=== PATIENT | male | born 1960 | race Caucasian/White ===

== ENCOUNTER 2020-01-20 08:58 | Inpatient (IN) | payer MEDICAID ==
[2020-01-20] VITALS (18 sets, daily range): BP systolic 118–157; BP diastolic 62–101
[~2020-01-20] VITALS: Ht 185.4 cm; Wt 115.9 kg
--- NOTE | 2020-01-20 09:18 | NUR ---
INFORMED PRIMARY NURSE CHRISTY AND DR ADAMS THAT PT HAS ARRIVED AND IS IN BED 03
[2020-01-20 09:39] LABS: BASOPHILS # (AUTO) 0.1 X10'3 (0-0.2); BASOPHILS % (AUTO) 0.7 % (0-1); EOSINOPHILS # (AUTO) 0.4 X10'3 (0-0.9); EOSINOPHILS % (AUTO) 4.8 % (0-6); HEMATOCRIT 50.1 % (42.0-52.0); HEMOGLOBIN 16.7 g/dl (14.0-17.9); LYMPHOCYTES # (AUTO) 2.2 X10'3 (1.1-4.8); LYMPHOCYTES % (AUTO) 24.4 % (21-51); MEAN CORPUSCULAR HEMOGLOBIN 28.9 PG (27.0-31.0); MEAN CORPUSCULAR HGB CONC 33.3 g/dL (33.0-36.5); MEAN CORPUSCULAR VOLUME 86.7 FL (78-98); MEAN PLATELET VOLUME 8.1 FL (7.4-10.4); MONOCYTES # (AUTO) 0.5 X10'3 (0-0.9); MONOCYTES % (AUTO) 5.9 % (2-12); NEUTROPHILS # (AUTO) 5.8 X10'3 (1.8-7.7); NEUTROPHILS % (AUTO) 64.2 % (42-75); PLATELET COUNT 183 X10'3 (140-440); RED BLOOD COUNT 5.78 X10'6 (4.70-6.10); RED CELL DISTRIBUTION WIDTH 15.3 % (11.5-14.5); WHITE BLOOD COUNT 9.1 X10'3 (4.5-11.0)
[2020-01-20 10:03] LABS: ALANINE AMINOTRANSFERASE 26 U/L (12-78); ALBUMIN 3.7 G/DL (3.4-5.0); ALKALINE PHOSPHATASE 106 IU/L (46-116); ANION GAP 6 (8-16); ASPARTATE AMINO TRANSFERASE 16 U/L (10-37); BILIRUBIN,TOTAL 0.4 MG/DL (0.1-1.0); BLOOD UREA NITROGEN 20 MG/DL (7-18); BUN/CREATININE RATIO 19.2 (5.4-32.0); CALCIUM 9.5 MG/DL (8.5-10.1); CHLORIDE 107 MMOL/L (99-107); CREATININE 1.04 MG/DL (0.60-1.10); GLUCOSE 106 MG/DL (70-104); LIPASE 91 U/L (73-393); POTASSIUM 4.5 MMOL/L (3.5-5.1); SODIUM 145 MMOL/L (135-145); TOTAL CARBON DIOXIDE 31.8 MMOL/L (24-32); TOTAL PROTEIN 7.4 G/DL (6.4-8.2); eGFR 74 ML/MIN
[2020-01-20] MEDS ORDERED: LEVO75TA PO (10:50)
[2020-01-20] MEDS ORDERED: OXYC5CAP19 PO (10:50)
[2020-01-20] MEDS ORDERED: ASPI-611 PO (10:50)
[2020-01-20] MEDS ORDERED: MORP30CA16 PO (10:50)
[2020-01-20 10:56] LABS: CLARITY,URINE CLOUDY (Clear); COLOR,URINE YELLOW (Yellow); GLUCOSE, URINE NEGATIVE (Neg); KETONES,URINE NEGATIVE (Neg); LEUKOCYTE ESTERASE ,URINE NEGATIVE (Neg); NITRITES, URINE NEGATIVE (Neg); OCCULT BLOOD,URINE NEGATIVE (Neg); PH,URINE 5.5 (4.8-8.0); PROTEIN,URINE NEGATIVE (Neg); UROBILINOGEN,URINE 0.2 E.U/dL (0.2-1.0)
[2020-01-20 10:57] LABS: UA COLLECTION TYPE URINAL
[2020-01-20 11:07] LABS: MUCUS STRANDS MODERATE /LPF (Neg); SQUAMOUS EPITHELIAL CELL,UR MODERATE /LPF (FEW)
[2020-01-20 11:08] LABS: BACTERIA,URINE 1+ /HPF (Neg); RBC,URINE 0-2 /HPF (0-2)
[2020-01-20] MEDS ORDERED: orphenadrine citrate 60mg/2ml inj. IM ONE (13:15)
[2020-01-20] MEDS ORDERED: diphenhydrAMINE 25mg capsule PO PRN (13:45)
[2020-01-20] MEDS ORDERED: metoclopramide 5 mg/ml inj IV PRN (13:45)
[2020-01-20] MEDS ORDERED: mag hydrox/Alum hydrox/simeth 30ml oral suspension PO PRN (13:45)
[2020-01-20] MEDS ORDERED: HYDROcodone/acetaminophen 10/325mg tab PO PRN (13:45)
[2020-01-20] MEDS ORDERED: magnesium hydroxide 30ml (MOM) UD suspension PO PRN (13:45)
[2020-01-20] MEDS ORDERED: potassium CL 10mEq/100ml bag 100 ML IV PRN ×2 (13:45)
[2020-01-20] MEDS ORDERED: acetaminophen 650mg rectal suppository RC PRN (13:45)
[2020-01-20] MEDS ORDERED: magnesium 2GM in 50ml NS 50 ML IV PRN (13:45)
[2020-01-20] MEDS ORDERED: magnesium Cl slow-release 64mg tablet PO PRN (13:45)
[2020-01-20] MEDS ORDERED: HYDROcodone/acetaminophen 5mg/325mg tablet PO PRN (13:45)
[2020-01-20] MEDS ORDERED: potassium Cl 20 mEq SR tablet PO PRN ×2 (13:45)
[2020-01-20] MEDS ORDERED: bisacodyl 10mg suppository rectal RC PRN (13:45)
[2020-01-20] MEDS ORDERED: magnesium 4gm in 100ml NS 100 ML IV PRN (13:45)
[2020-01-20] MEDS ORDERED: acetaminophen 325mg tablet PO PRN ×2 (13:45)
[2020-01-20] MEDS ORDERED: morphine 2 MG/ML inj. syringe IV PRN ×2 (13:45→16:35)
[2020-01-20] MEDS ORDERED: ondansetron/PF 4mg/2ml inj IV PRN ×2 (13:45→16:35)
[2020-01-20] MEDS: normal saline 1000ml 1,000 ML IV SCH ×2 (14:11→23:42)
[2020-01-20] MEDS ORDERED: BACL10TA2 PO (15:31)
[2020-01-20] MEDS ORDERED: DOCU-267 PO (15:31)
[2020-01-20] MEDS ORDERED: CARI-433 PO (15:31)
[2020-01-20] MEDS ORDERED: ceFAZolin 1000mg inj ONE (16:31)
[2020-01-20] MEDS ORDERED: BUPIVAcaine/PF 2.5 mg/ml (0.25%) 30ml vial ONE (16:31)
[2020-01-20] MEDS ORDERED: ringers solution, lacted 1,000 ML IV SCH (16:34)
[2020-01-20] MEDS ORDERED: morphine 4 MG/ML inj SYRINge IV PRN (16:35)
[2020-01-20] MEDS ORDERED: meperidine/PF 25mg/ml syringe IV PRN ×2 (16:35)
[2020-01-20] MEDS ORDERED: proCHLORperazine 10 MG/2 ml inj IV PRN (16:35)
[2020-01-20] MEDS ORDERED: neostigmine methylsulfate 1 MG/ML 10ml vial ONE (17:00)
[2020-01-20] MEDS ORDERED: sevoflurane 250ml liquid IH ONE (17:00)
[2020-01-20] MEDS ORDERED: midazolam 2 mg/2 ml injection ONE (17:06)
[2020-01-20] MEDS ORDERED: ceFOXitin 2 GM ADDVANTGE BAG 50 ML IV ONE (17:12)
[2020-01-20] MEDS ORDERED: fentaNYL /PF 50mcg/ml 5ml ampule ONE (17:15)
--- NOTE | 2020-01-20 18:00 | NUR ---
Received from OR via , accompanied by Anesthesiologist DR BUCKNER and report given by Anesthesiolgist. AWAKENS TO VOICE. VITALS STABLE. DRESSINGS DI. GAVI PAIN. ABD SOFT.
[2020-01-20] MEDS: meperidine/PF 25mg/ml syringe IV PRN ×3 (18:23→18:46)
[2020-01-20] MEDS ORDERED: ondansetron/PF 4mg/2ml inj ONE (18:27)
[2020-01-20] MEDS ORDERED: propofol inj 20 ML IV ONE (18:27)
[2020-01-20] MEDS ORDERED: rocuronium 10mg/ml inj IV ONE (18:27)
[2020-01-20] MEDS ORDERED: glycopyrrolate 0.2mg/ml inj ONE (18:27)
[2020-01-20] MEDS ORDERED: dexamethasone sod phosphate 4mg/ml inj. ONE (18:27)
[2020-01-20] MEDS ORDERED: LIDOcaine 2% (20mg/ml) 5ml vial ONE (18:27)
--- NOTE | 2020-01-20 19:40 | NUR ---
Report called to receiving nurse. Transferred via [facility] . Special Issues communicated to receiving nurse. AWAKE AND ORIENTED. VITALS STABLE. DRESSINGS DI. STATES PAIN IMPROVING. TO SURGICAL RM 348B AT THIS TIME.
--- NOTE | 2020-01-20 19:57 | NUR ---
pt arrived to unit, in no apparent distress. VSS, 2x rails up, BLL, call light in reach. drssing CDI, will continue to monitor
[2020-01-20] MEDS: docusate sod 100mg capsule PO SCH (20:00)
[2020-01-20] MEDS: K and/or MAG REPLACEMENT MC SCH (20:00)
[2020-01-20] MEDS: morphine 2 MG/ML inj. syringe IV PRN (20:27)
[2020-01-20] MEDS: temazepam 15mg capsule PO PRN (23:24)
[2020-01-21] VITALS: BP 137/74
[2020-01-21] MEDS: temazepam 15mg capsule PO PRN (00:15)
[2020-01-21] MEDS: morphine 2 MG/ML inj. syringe IV PRN ×2 (02:21→07:51)
[2020-01-21 06:00] VITALS: BP 158/95
[2020-01-21 06:16] LABS: BASOPHILS % (AUTO) 0.1 % (0-1); EOSINOPHILS % (AUTO) 0.1 % (0-6); HEMATOCRIT 47.9 % (42.0-52.0); HEMOGLOBIN 16.2 g/dl (14.0-17.9); LYMPHOCYTES # (AUTO) 0.9 X10'3 (1.1-4.8); LYMPHOCYTES % (AUTO) 11.2 % (21-51); MEAN CORPUSCULAR HEMOGLOBIN 29.2 PG (27.0-31.0); MEAN CORPUSCULAR HGB CONC 33.8 g/dL (33.0-36.5); MEAN CORPUSCULAR VOLUME 86.3 FL (78-98); MEAN PLATELET VOLUME 8.7 FL (7.4-10.4); MONOCYTES # (AUTO) 0.2 X10'3 (0-0.9); MONOCYTES % (AUTO) 2.5 % (2-12); NEUTROPHILS % (AUTO) 86.1 % (42-75); PLATELET COUNT 154 X10'3 (140-440); RED BLOOD COUNT 5.55 X10'6 (4.70-6.10); WHITE BLOOD COUNT 8.2 X10'3 (4.5-11.0)
[2020-01-21 06:35] LABS: ALANINE AMINOTRANSFERASE 28 U/L (12-78); ALBUMIN 3.1 G/DL (3.4-5.0); ALBUMIN/GLOBULIN RATIO 0.9 (1.1-1.5); ALKALINE PHOSPHATASE 96 IU/L (46-116); ANION GAP 8 (8-16); ASPARTATE AMINO TRANSFERASE 21 U/L (10-37); BILIRUBIN,TOTAL 0.4 MG/DL (0.1-1.0); BLOOD UREA NITROGEN 16 MG/DL (7-18); BUN/CREATININE RATIO 17.4 (5.4-32.0); CALCIUM 8.5 MG/DL (8.5-10.1); CHLORIDE 106 MMOL/L (99-107); CREATININE 0.92 MG/DL (0.60-1.10); GLUCOSE 118 MG/DL (70-104); POTASSIUM 4.4 MMOL/L (3.5-5.1); SODIUM 141 MMOL/L (135-145); TOTAL CARBON DIOXIDE 26.7 MMOL/L (24-32); TOTAL PROTEIN 6.4 G/DL (6.4-8.2); eGFR 85 ML/MIN
--- NOTE | 2020-01-21 06:50 | NUR ---
Patient in room [facility]. I have received report from PENELOPE Arizmendi and had the opportunity to ask questions and assume patient care.
[2020-01-21] MEDS: K and/or MAG REPLACEMENT MC SCH (08:00)
[2020-01-21] MEDS ORDERED: levoTHYROXINE 75mcg tablet PO SCH (08:00)
[2020-01-21] MEDS ORDERED: heparin, porcine 5000 units/ml vial SQ SCH (08:00)
[2020-01-21] MEDS: docusate sod 100mg capsule PO SCH (08:04)
[2020-01-21] MEDS ORDERED: morphine ER 30mg tablet PO SCH ×2 (10:30→16:00)
[2020-01-21 11:00] VITALS: BP 156/84
== END 2020-01-21 10:30 | disposition home or self-care (01) | DRG 263 ==
LOC: ER 08:58 → ED HOLD 13:42 → SUR 3N 19:45
PROVIDERS: ADMIT Family Medicine; ATTEND Family Medicine
PROC: 0FT44ZZ Resection of Gallbladder, Percutaneous Endoscopic Approach (ICD-10-PCS; principal; 2020-01-20 17:00)
DX: K80.60 Calculus of gallbladder and bile duct with cholecystitis, unspecified, without obstruction (principal); E03.9 Hypothyroidism, unspecified; F12.90 Cannabis use, unspecified, uncomplicated; F17.210 Nicotine dependence, cigarettes, uncomplicated; G47.33 Obstructive sleep apnea (adult) (pediatric); G89.4 Chronic pain syndrome; K66.0 Peritoneal adhesions (postprocedural) (postinfection); Z92.21 Personal history of antineoplastic chemotherapy; Z92.3 Personal history of irradiation; Z85.89 Personal history of malignant neoplasm of other organs and systems; Z80.9 Family history of malignant neoplasm, unspecified
CPT/HCPCS: 36415; 80053; 81001; 83690; 83735; 84100; 85025; 87081; 87088; 99285; A4215; A4618; A7000; G0378; J0690; J0694; J1100; J1644; J2001; J2175; J2250; J2270; J2360; J2405; J2704; J2710; J3010; J3490; J7030; J7120